=== PATIENT | female | born 1950 | race Caucasian/White ===

== ENCOUNTER 2020-02-14 22:09 | Emergency (ER) | payer MEDICARE, OTHER ==
--- NOTE | 2020-02-14 22:48 | EDM.PDOC ---
ED HPI GENERAL MEDICAL PROBLEM - General Chief Complaint: Upper Extremity Injury/Pain Stated Complaint: MEDICAL VIA [facility] Time Seen by Provider: 02/14/20 22:41 Source of Information: Reports: Patient, Family, RN Notes Reviewed History Limitations: Reports: No Limitations - History of Present Illness INITIAL COMMENTS - FREE TEXT/NARRATIVE: 69-year-old female presents emergency department today via EMS services for a fall at home. She has known seizure disorder she is currently on vacation this type of stress out of routine can induce a seizure for her she fell down some steps landed on an outstretched arm she is experiencing pain in the wrist and elbow on the right side she denies any loss of consciousness no head injury no other injuries Right Arm Pain Score (Numeric/FACES): 10 - Related Data Allergies Allergy/AdvReac Type Severity Reaction Status Date / Time divalproex sodium Allergy Other Verified 02/14/20 22:30 [From Depakote] lamotrigine [From Lamictal] Allergy Rash Verified 02/14/20 22:30 levetiracetam [From Keppra] Allergy Other Verified 02/14/20 22:30 Home Meds: Home Meds Citalopram [Citalopram HBr] 10 mg PO DAILY 02/14/20 [History] ClonazePAM [KlonoPIN] 0.25 mg PO DAILY 02/14/20 [History] Phenytoin Sodium Extended [Dilantin] 100 mg PO DAILY 02/14/20 [History] Phenytoin Sodium Extended [Dilantin] 200 mg PO DAILY 02/14/20 [History] Zonisamide [Zonegran] 300 mg PO BID 02/14/20 [History] Past Medical History HEENT History: Reports: Impaired Vision Cardiovascular History: Reports: High Cholesterol, Hypertension MANAGED SERVICES CONSULTANT History: Reports: Musculoskeletal History: Reports: Back Pain, Chronic, Fracture Neurological History: Reports: Seizure, Other (See Below) Other Neuro History: ataxia Psychiatric History: Reports: Depression Oncologic (Cancer) History: Reports: Breast - Infectious Disease History Infectious Disease History: Reports: Chicken Pox, Measles - Past Surgical History HEENT Surgical History: Reports: Tonsillectomy Female Surgical History: Reports: Hysterectomy Other Musculoskeletal Surgeries/Procedures:: back surgery microdiscectomies Oncologic Surgical History: Reports: Biopsy of Breast, Mastectomy Social & Family History - Tobacco Use Smoking Status *Q: Never Smoker - Caffeine Use Caffeine Use: Reports: Soda Caffeine Use Comment: diet coke - Recreational Drug Use Recreational Drug Use: No Review of Systems - Review of Systems Review Of Systems: See Below Respiratory: Reports: No Symptoms Cardiovascular: Reports: No Symptoms GI/Abdominal: Reports: No Symptoms Musculoskeletal: Reports: Arm Pain, Joint Pain ED EXAM, GENERAL - Physical Exam Exam: See Below Free Text/Narrative:: Examination of the right upper extremity she has full range of motion of the shoulder without difficulty or pain her lower upper extremity is in a splint she has pain with palpation around the elbow and pain with palpation on the wrist exam is limited by the splint Exam Limited By: No Limitations General Appearance: Alert, WD/WN, No Apparent Distress Respiratory/Chest: No Respiratory Distress Course - Vital Signs Last Recorded V/S: Last Vital Signs Temp 96.6 F L 02/14/20 22:22 Pulse 81 02/14/20 22:22 Resp 18 02/14/20 22:22 BP 197/89 H 02/14/20 22:22 Pulse Ox 90 L 02/14/20 22:22 - Orders/Labs/Meds Meds: Medications Discontinued Medications Generic Name Dose Route Start Last Admin Trade Name Isaias PRN Reason Stop Dose Admin Fentanyl 100 mcg 02/14/20 23:18 02/15/20 00:35 Sublimaze IVPUSH 02/14/20 23:19 Not Given ONETIME ONE Hydromorphone HCl 0.5 mg 02/14/20 22:52 02/14/20 23:00 Dilaudid IVPUSH 02/14/20 22:53 0.5 mg ONETIME ONE Administration Ketorolac Tromethamine 30 mg 02/15/20 00:09 02/15/20 00:18 Toradol IVPUSH 02/15/20 00:10 30 mg ONETIME ONE Administration Departure - Departure Time of Disposition: 00:51 Disposition: Home, Self-Care 01 Condition: Fair Clinical Impression: Contusion of right wrist Qualifiers: Encounter type: initial encounter Qualified Code(s): S60.211A - Contusion of right wrist, initial encounter - Discharge Information Instructions: Contusion, Imso-wp-Benw Referrals: PCP,None [Primary Care Provider] - Forms: ED Department Discharge Additional Instructions: Continue to use Tylenol or Motrin as needed for pain control, please followup with your primary care provider in 3-5 days if not better, please call return to the emergency department with worsening of symptoms. Sepsis Event Note (ED) - Evaluation Sepsis Screening Result: No Definite Risk - Focused Exam Vital Signs: Vital Signs Temp Pulse Resp BP Pulse Ox 02/14/20 22:22 96.6 F L 81 18 197/89 H 90 L - Assessment/Plan Plan: Assessment Acuity = acute Site and laterality = right wrist contusion Etiology = secondary to fall on outstretched hand Manifestations = none Location of injury = Home Lab values = x-rays did not reveal any fracture Plan Good relief with Toradol discharged home nonsteroidal anti-inflammatories follow-up primary care 3 to 5 days if not better This note was dictated using [employer] voice recognition software please call with any questions on syntax or grammar.
[2020-02-14] MEDS ORDERED: HYDROmorphone 0.5 MG/0.5 ML Syringe IVPUSH ONE (22:52)
[2020-02-14] MEDS ORDERED: fentaNYL 100 MCG/2 ML SDV IVPUSH ONE (23:18)
--- NOTE | 2020-02-15 00:04 | CRLCR ---
Indication: Pain after fall Technique: Two views Comparison: None Findings: Limited. Patient could not tolerate oblique view. Underlying osteopenia without definite fracture or dislocation on these projections. Distal radius and ulna unremarkable. Dictated by Dilip Jeff MD @ Feb 15 2020 12:02AM Signed by Dr. Dilip Jeff @ Feb 15 2020 12:03AM
--- NOTE | 2020-02-15 00:04 | CRLCR ---
Indication: Pain after fall Technique: Two views Comparison: None Findings: Limited examination. Examination is essentially 2 somewhat oblique images. No gross displaced fracture identified, however note that evaluation of the radial head and coronoid process in particular are suboptimally seen. Elbow effusion not excluded as well. Dictated by Dilip Jeff MD @ Feb 14 2020 11:58PM Signed by Dr. Dilip Jeff @ Feb 15 2020 12:02AM
[2020-02-15] MEDS ORDERED: Ketorolac 30 MG/ML SDV IVPUSH ONE (00:09)
== END 2020-02-15 01:00 | disposition home or self-care (01) ==
LOC: JP.ED 22:09
DX: S60.211A Contusion of right wrist, initial encounter (principal); F32.9 Major depressive disorder, single episode, unspecified; I10 Essential (primary) hypertension; Z88.8 Allergy status to other drugs, medicaments and biological substances; Z79.899 Other long term (current) drug therapy; Z90.710 Acquired absence of both cervix and uterus; Z98.890 Other specified postprocedural states; Z90.49 Acquired absence of other specified parts of digestive tract; W10.9XXA Fall (on) (from) unspecified stairs and steps, initial encounter
CPT/HCPCS: 73070-RT; 73100-RT; 96374; 96375; 99283-25; J1170; J1885